=== PATIENT | male | born 2000 | race Hispanic/Latino ===

== ENCOUNTER 2019-03-24 22:33 | Emergency (ER) | payer MEDICAID, OTHER | END 2019-03-24 23:28 | disposition home or self-care (01) | LOC: EDH 22:33 | DX: Z11.3 Encounter for screening for infections with a predominantly sexual mode of transmission (principal); F20.9 Schizophrenia, unspecified; F32.9 Major depressive disorder, single episode, unspecified; F41.9 Anxiety disorder, unspecified; F91.3 Oppositional defiant disorder; Z72.0 Tobacco use | CPT/HCPCS: 99281 ==